=== PATIENT | male | born 1935 | race Caucasian/White ===

== ENCOUNTER → 2020-03-30 | Outpatient (CLI) | payer MEDICARE, BC ==
[~2020-03-30] MED LIST: APIX5TAB PO; ATOR20TA PO; BUME1TAB21 PO; BUSP10TA PO; CARV-39 PO; ESCI20TA10 PO; QUET100T4 PO; QUET50TA5 PO; VIT1TABL32 PO; [UNRECOGNIZED DRUG - OTHER] PO; [UNRECOGNIZED DRUG - OTHER] PO; ropinerole PO
[2020-03-30 11:46] LABS: BASOPHILS # (AUTO) 0.01 x10^3/uL (0-0.1); BASOPHILS % (AUTO) 0 % (0-1); EOSINOPHILS # (AUTO) 0.21 x10^3/uL (0-0.4); EOSINOPHILS % (AUTO) 2 % (1-7); HCT (SEDRATE) 41.5 % (39.2-51.8); LYMPHOCYTES # (AUTO) 2.25 x10^3/uL (1-3.4); LYMPHOCYTES % (AUTO) 24 % (22-44); MD NO; MEAN CORPUSCULAR HEMOGLOBIN 30.9 pg (27.5-34.5); MEAN CORPUSCULAR HGB CONC 33.1 g/dL (33.2-36.2); MEAN CORPUSCULAR VOLUME 93.6 fL (81-97); MEAN PLATELET VOLUME 8.9 fL (7.4-10.4); MONOCYTES % (AUTO) 9 % (2-9); NEUTROPHILS # (AUTO) 6.01 x10^3/uL (1.8-6.8); NEUTROPHILS % (AUTO) 65 % (42-75); PLATELET COUNT 246 x10^3/uL (130-400); RED BLOOD COUNT 4.43 x10^6/uL (4.38-5.82); RED CELL DISTRIBUTION WIDTH 15.6 % (9.4-14.8)
[2020-03-30 11:55] LABS: INTERNATIONAL NORMALIZED RATIO 1.07 (0.93-1.1)
[2020-03-30 11:56] LABS: ALANINE AMINOTRANSFERASE 15 U/L (12-78); ALBUMIN 3.7 g/dL (3.4-5.0); ANION GAP 7 mmol/L (5-15); CALCIUM 9.4 mg/dL (8.5-10.1); CHLORIDE 108 mmol/L (98-107)
[2020-03-30 11:59] LABS: ALKALINE PHOSPHATASE 97 U/L (45-117); BILIRUBIN,TOTAL 0.9 mg/dL (0.2-1.0); CREATININE 1.24 mg/dL (0.7-1.3); TOTAL PROTEIN 7.5 g/dL (6.4-8.2)
== END | disposition home or self-care (01) ==
LOC: STAR 10:03
PROVIDERS: ATTEND Orthopaedic Surgery Orthopaedic Surgery of the Spine
DX: Z01.812 Encounter for preprocedural laboratory examination (principal); S32.030A Wedge compression fracture of third lumbar vertebra, initial encounter for closed fracture; I48.91 Unspecified atrial fibrillation; I45.10 Unspecified right bundle-branch block; Z20.828 Contact with and (suspected) exposure to other viral communicable diseases; X58.XXXA Exposure to other specified factors, initial encounter; Y93.89 Activity, other specified; Y92.89 Other specified places as the place of occurrence of the external cause; Y99.8 Other external cause status
CPT/HCPCS: 36415; 71046; 80053; 83036; 85025; 85610; 85651; 85730; 87635; 93005

== ENCOUNTER 2020-04-02 05:59 | Day surgery (SDC) | payer MEDICARE, BC ==
[2020-03-30 11:29] VITALS: BP 121/72
[~2020-04-02] VITALS: Ht 182.9 cm; Wt 79.6 kg
[2020-04-02] MEDS ORDERED: VANCOMYCIN PMX 1GM/200ML 200 ML IVPB ONE (07:00)
[2020-04-02] MEDS ORDERED: CHLORHEXIDINE 15 ML UDC MM ONE (07:00)
[2020-04-02] MEDS ORDERED: FENTANYL PF 250 MCG/5ML ONE (07:06)
[2020-04-02] MEDS ORDERED: PHENYLEPHRINE 10 MG/ML ONE (07:11)
[2020-04-02] MEDS ORDERED: LACTATED RINGERS 1,000 ML IV SCH (07:24)
[2020-04-02] MEDS ORDERED: CEFAZOLIN 1,000 MG ONE (07:52)
[2020-04-02] MEDS ORDERED: GLYCOPYRROLATE 0.2MG/1ML, 5ML ONE (07:52)
[2020-04-02] MEDS ORDERED: PROPOFOL 10 MG/ML, 20ML ONE (07:52)
[2020-04-02] MEDS ORDERED: NEOSTIGMINE 1 MG/ML, 10ML ONE (07:52)
[2020-04-02] MEDS ORDERED: ROCURONIUM 10MG/ML,5ML ONE (07:52)
[2020-04-02] MEDS ORDERED: ONDANSETRON 2MG/ML, 2ML ONE (07:52)
[2020-04-02] MEDS ORDERED: DEXAMETHASONE 4 MG/ML, 1ML ONE (07:52)
[2020-04-02] MEDS ORDERED: HALOPERIDOL 5 MG/ML IV PRN (08:00)
[2020-04-02] MEDS ORDERED: OXYcodone 5 MG/5 ML ORAL.SOL UDC PO PRN (08:00)
[2020-04-02] MEDS ORDERED: PROMETHAZINE 25 MG/ML, 1ML IVPush PRN (08:00)
[2020-04-02] MEDS ORDERED: hydrALAzine 20 MG/ML, 1ML IV PRN (08:00)
[2020-04-02] MEDS ORDERED: FENTANYL PF 100 MCG/2ML IV PRN (08:00)
[2020-04-02] MEDS ORDERED: MEPERIDINE/PF 25MG/0.5ML IVPush PRN (08:00)
[2020-04-02] MEDS ORDERED: HYDROmorphone 1 MG/ML, 1ML INJ IVPush PRN (08:00)
[2020-04-02] MEDS ORDERED: LABETALOL 5MG/ML, 20ML IV PRN (08:00)
[2020-04-02] MEDS ORDERED: morphine SULFATE 10 MG/ML, 1ML IVPush PRN (08:00)
[2020-04-02] MEDS ORDERED: VASOPRESSIN 20 UNIT/ML, 1ML ONE (08:37)
[2020-04-02] MEDS ORDERED: SUGAMMADEX 200 MG/2 ML IVPush ONE (09:09)
[2020-04-02] MEDS ORDERED: OMNIPAQUE 180 MG/ML, 20ML VIAL ONE (09:21)
[2020-04-02] MEDS ORDERED: LACTATED RINGERS 500 ML IVBOLUS ONE (11:30)
== END 2020-04-02 13:00 | disposition home or self-care (01) ==
LOC: OUT 05:59
PROVIDERS: ATTEND Orthopaedic Surgery Orthopaedic Surgery of the Spine
DX: M80.08XA Age-related osteoporosis with current pathological fracture, vertebra(e), initial encounter for fracture (principal); M54.5 Low back pain; M85.88 Other specified disorders of bone density and structure, other site; I25.10 Atherosclerotic heart disease of native coronary artery without angina pectoris; I42.9 Cardiomyopathy, unspecified; E78.5 Hyperlipidemia, unspecified; Z79.01 Long term (current) use of anticoagulants; Z79.899 Other long term (current) drug therapy; Z88.5 Allergy status to narcotic agent; Z88.8 Allergy status to other drugs, medicaments and biological substances; Z95.5 Presence of coronary angioplasty implant and graft; Z99.81 Dependence on supplemental oxygen; Z98.890 Other specified postprocedural states
CPT/HCPCS: 22514; 72100; 88307; 88311; 93005; C1713; J0690; J1100; J2370; J2405; J2704; J2710; J3010; J3370; J7120; Q9965